=== PATIENT | male | born 1985 | race Caucasian/White ===

== ENCOUNTER 2017-03-20 23:27 | Inpatient (IN) | payer SELFPAY ==
[2017-03-20] MEDS ORDERED: Sodium Chloride 0.9% 10 ML Syringe FLUSH PRN (23:32)
[2017-03-20] MEDS: Sodium Chloride 0.9% 1,000 ML IV SCH (23:39)
[2017-03-21] LABS: ACETAMINOPHEN 0 ug/mL (10-30)
--- NOTE | 2017-03-21 00:59 | EDM.PDOC ---
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 He did not show and some coworkers went to his apartment to check on him. They found him laying on the floor like he passed out. When EMS arrived the found the same. He would localize to pain and moan. He would move all 4 extremities when he did that. There was nothing found on scene that he may have taken and there was no liquor bottles. Onset: Gradual Duration: Hour(s): Improves with: Reports: None Worsens with: Reports: None Associated Symptoms: Reports: No Other Symptoms - Related Data Allergies Allergy/AdvReac Type Severity Reaction Status Date / Time Unable to Assess Allergy Unverified 03/20/17 23:30 Home Meds: Home Meds . [Unable to Verify Home Med List] 03/20/17 [History] ED ROS GENERAL - Review of Systems Review Of Systems: Unable To Obtain ED EXAM, NEURO - Physical Exam Exam: See Below Exam Limited By: Altered Mental Status General Appearance: Lethargic Eye Exam: Bilateral Eye: EOMI, PERRL (he is looking to the right when I open his eyes) Ears: Normal External Exam Nose: Normal Inspection Head Exam: Atraumatic, Normocephalic Neck: Normal Inspection Respiratory/Chest: No Respiratory Distress, Lungs Clear, Normal Breath Sounds Cardiovascular: Regular Rate, Rhythm, No Edema, No Murmur GI/Abdominal: Soft, Non-Tender, No Organomegaly, No Mass Neurological: Other (He will not open his eyes to pain. He does localize to the pain and moan. He move all 4 extremities when stimulated with pain.) EKG INTERPRETATION EKG Date: 03/20/17 Time: 23:45 Rhythm: NSR Rate (Beats/Min): 80 [place]: Normal P-Wave: Present QRS: Normal ST-T: Other (Inverted T wave in lead III and aVF) Course - Vital Signs Last Recorded V/S: Last Vital Signs Temp 98.3 F 03/20/17 23:30 Pulse 83 03/20/17 23:30 Resp 22 H 03/20/17 23:30 BP 140/94 H 03/20/17 23:30 Pulse Ox 98 03/20/17 23:30 - Orders/Labs/Meds Orders: Active Orders 24 hr Category Date Time Status Cardiac Monitoring [RC] . DIRECTED Care 03/20/17 23:32 Active EKG Documentation Completion [RC] STAT Care 03/20/17 23:33 Active Peripheral IV Care [RC] . DIRECTED Care 03/20/17 23:33 Active Head wo Cont [CT] Stat Exams 03/20/17 23:33 Taken Sodium Chloride 0.9% [Normal Saline] 1,000 ml Med 03/20/17 23:45 Active IV ASDIRECTED Sodium Chloride 0.9% [Saline Flush] Med 03/20/17 23:32 Active 10 ml FLUSH ASDIRECTED PRN Peripheral IV Insertion Adult [OM.PC] Stat Oth 03/20/17 23:32 Ordered Medication Orders Sodium Chloride (Normal Saline) 1,000 mls @ 125 mls/hr IV ASDIRECTED RYAN Last Admin: 03/20/17 23:39 Dose: 125 mls/hr Sodium Chloride (Saline Flush) 10 ml FLUSH ASDIRECTED PRN PRN Reason: Keep Vein Open Last Admin: 03/20/17 23:39 Dose: 10 ml Labs: Laboratory Tests 03/20/17 03/20/17 03/20/17 Range/Units 23:20 23:29 23:29 WBC 11.30 H (4.23-9.07) K/mm3 RBC 5.13 (4.63-6.08) M/mm3 Hgb 15.4 (13.7-17.5) gm/L Hct 45.8 (40.1-51.0) % MCV 89.3 (79.0-92.2) fl MCH 30.0 (25.7-32.2) pg MCHC 33.6 (32.2-35.5) g/dl RDW Std Deviation 43.4 (35.1-43.9) fL Plt Count 232 (163-337) K/mm3 MPV 10.8 (9.4-12.3) fl Neut % (Auto) 63.6 (34.0-67.9) % Lymph % (Auto) 24.5 (21.8-53.1) % [place] % (Auto) 8.8 (5.3-12.2) % Eos % (Auto) 1.9 (0.8-7.0) Baso % (Auto) 0.7 (0.1-1.2) % Neut # (Auto) 7.17 H (1.78-5.38) K/mm3 Lymph # (Auto) 2.77 (1.32-3.57) K/mm3 [place] # (Auto) 1.00 H (0.30-0.82) K/mm3 Eos # (Auto) 0.22 (0.04-0.54) K/mm3 Baso # (Auto) 0.08 (0.01-0.08) K/mm3 Sodium 142 (136-145) mEq/L Potassium 3.8 (3.5-5.1) mEq/L Chloride 107 (98-107) mEq/L Carbon Dioxide 26 (21-32) mEq/L Anion Gap 12.8 (5-15) BUN 10 (7-18) mg/dL Creatinine 1.0 (0.7-1.3) mg/dL Est Cr Clr Drug Dosing TNP Estimated GFR (MDRD) > 60 (>60) mL/min BUN/Creatinine Ratio 10.0 L (14-18) Glucose 106 (74-106) mg/dL Calcium 8.7 (8.5-10.1) mg/dL Total Bilirubin 0.2 (0.2-1.0) mg/dL AST 22 (15-37) U/L ALT 53 (16-63) U/L Alkaline Phosphatase 69 (46-116) U/L Troponin I < 0.017 (0.00-0.056) ng/mL Total Protein 6.9 (6.4-8.2) g/dl Albumin 3.3 L (3.4-5.0) g/dl Globulin 3.6 gm/dL Albumin/Globulin Ratio 0.9 L (1-2) Salicylates (2.8-20) mg/dL Urine Opiates Screen Negative (NEGATIVE) Ur Buprenorphine Scrn Negative (NEGATIVE) Ur Oxycodone Screen Negative (NEGATIVE) Urine Methadone Screen Negative (NEGATIVE) Ur Propoxyphene Screen Negative (NEGATIVE) Acetaminophen 0 L (10-30) ug/mL Ur Barbiturates Screen Negative (NEGATIVE) Ur Tricyclics Screen Negative (NEGATIVE) Ur Phencyclidine Scrn Negative (NEGATIVE) Ur Amphetamine Screen Negative (NEGATIVE) U Methamphetamines Scrn Negative (NEGATIVE) U Benzodiazepines Scrn Negative (NEGATIVE) U Cocaine Metab Screen Negative (NEGATIVE) U Marijuana (THC) Screen Negative (NEGATIVE) Ethyl Alcohol 0.00 (0.00) gm% 03/20/17 Range/Units 23:29 WBC (4.23-9.07) K/mm3 RBC (4.63-6.08) M/mm3 Hgb (13.7-17.5) gm/L Hct (40.1-51.0) % MCV (79.0-92.2) fl MCH (25.7-32.2) pg MCHC (32.2-35.5) g/dl RDW Std Deviation (35.1-43.9) fL Plt Count (163-337) K/mm3 MPV (9.4-12.3) fl Neut % (Auto) (34.0-67.9) % Lymph % (Auto) (21.8-53.1) % [place] % (Auto) (5.3-12.2) % Eos % (Auto) (0.8-7.0) Baso % (Auto) (0.1-1.2) % Neut # (Auto) (1.78-5.38) K/mm3 Lymph # (Auto) (1.32-3.57) K/mm3 [place] # (Auto) (0.30-0.82) K/mm3 Eos # (Auto) (0.04-0.54) K/mm3 Baso # (Auto) (0.01-0.08) K/mm3 Sodium (136-145) mEq/L Potassium (3.5-5.1) mEq/L Chloride (98-107) mEq/L Carbon Dioxide (21-32) mEq/L Anion Gap (5-15) BUN (7-18) mg/dL Creatinine (0.7-1.3) mg/dL Est Cr Clr Drug Dosing Estimated GFR (MDRD) (>60) mL/min BUN/Creatinine Ratio (14-18) Glucose (74-106) mg/dL Calcium (8.5-10.1) mg/dL Total Bilirubin (0.2-1.0) mg/dL AST (15-37) U/L ALT (16-63) U/L Alkaline Phosphatase (46-116) U/L Troponin I (0.00-0.056) ng/mL Total Protein (6.4-8.2) g/dl Albumin (3.4-5.0) g/dl Globulin gm/dL Albumin/Globulin Ratio (1-2) Salicylates 2.6 L (2.8-20) mg/dL Urine Opiates Screen (NEGATIVE) Ur Buprenorphine Scrn (NEGATIVE) Ur Oxycodone Screen (NEGATIVE) Urine Methadone Screen (NEGATIVE) Ur Propoxyphene Screen (NEGATIVE) Acetaminophen (10-30) ug/mL Ur Barbiturates Screen (NEGATIVE) Ur Tricyclics Screen (NEGATIVE) Ur Phencyclidine Scrn (NEGATIVE) Ur Amphetamine Screen (NEGATIVE) U Methamphetamines Scrn (NEGATIVE) U Benzodiazepines Scrn (NEGATIVE) U Cocaine Metab Screen (NEGATIVE) U Marijuana (THC) Screen (NEGATIVE) Ethyl Alcohol (0.00) gm% Meds: Medications Generic Name Dose Route Start Last Admin Trade Name Freq PRN Reason Stop Dose Admin Sodium Chloride 1,000 mls @ 125 mls/hr 03/20/17 23:45 03/20/17 23:39 Normal Saline IV 125 mls/hr ASDIRECTED RYAN Administration Sodium Chloride 10 ml 03/20/17 23:32 03/20/17 23:39 Saline Flush FLUSH 10 ml ASDIRECTED PRN Administration Keep Vein Open - Re-Assessments/Exams Free Text/Narrative Re-Assessment/Exam: 03/21/17 01:00 I ordered an IV saline lock, CT of his head, EKG and labs. His EKG shows a NSR with no acute changes. His CT shows nothing acute. His WBC was slightly elevated at 11.3. His CMP was negative. His troponin was negative. His UDS was negative. His salicylate and acetaminophen were negative. He still will not wake up. His brother called and said he has no medical problems. He has been under lots of stress lately. When I asked him if he had any psych problems he said nothing diagnosed. I will need to admit him to the ICU. I called Dr Kincaid and he agreed to the admission. Departure - Departure Time of Disposition: 01:05 Disposition: Admitted As Inpatient 65 Condition: Serious Clinical Impression: Unresponsive, Altered level of consciousness - Discharge Information - My Orders Last 24 Hours: My Active Orders 03/20/17 23:32 Cardiac Monitoring [RC] . DIRECTED Sodium Chloride 0.9% [Saline Flush] 10 ml FLUSH ASDIRECTED PRN Peripheral IV Insertion Adult [OM.PC] Stat 03/20/17 23:33 EKG Documentation Completion [RC] STAT Peripheral IV Care [RC] . DIRECTED Head wo Cont [CT] Stat 03/20/17 23:45 Sodium Chloride 0.9% [Normal Saline] 1,000 ml IV ASDIRECTED - Assessment/Plan Last 24 Hours: My Active Orders 03/20/17 23:32 Cardiac Monitoring [RC] . DIRECTED Sodium Chloride 0.9% [Saline Flush] 10 ml FLUSH ASDIRECTED PRN Peripheral IV Insertion Adult [OM.PC] Stat 03/20/17 23:33 EKG Documentation Completion [RC] STAT Peripheral IV Care [RC] . DIRECTED Head wo Cont [CT] Stat 03/20/17 23:45 Sodium Chloride 0.9% [Normal Saline] 1,000 ml IV ASDIRECTED
[2017-03-21] MEDS ORDERED: Pantoprazole 40 MG Vial ONE (01:17)
[2017-03-21] MEDS ORDERED: Docusate Sodium 100 MG Cap PO PRN (01:17)
[2017-03-21] MEDS ORDERED: Bisacodyl 5 MG Tab PO PRN (01:17)
[2017-03-21] MEDS ORDERED: HYDROmorphone 0.5 MG/0.5 ML Syringe IVPUSH PRN (01:17)
[2017-03-21] MEDS ORDERED: Ondansetron 4 MG/2 ML SDV IV PRN (01:17)
[2017-03-21] MEDS ORDERED: Polyethylene Glycol 3350 Powder 17 GM Packet PO PRN (01:17)
[2017-03-21] MEDS ORDERED: Promethazine 12.5 MG in Sodium Chloride 0.9% 50 ML IV PRN (01:17)
[2017-03-21] MEDS ORDERED: Acetaminophen 325 MG Tab PO PRN (01:17)
[2017-03-21] MEDS ORDERED: Acetaminophen/HYDROcodone 325-5 MG Tab PO PRN (01:17)
[2017-03-21] MEDS ORDERED: Albuterol/Ipratropium 3.0-0.5 MG/3 ML Neb Soln NEB PRN (01:17)
--- NOTE | 2017-03-21 01:17 | PCM.HP ---
H&P History of Present Illness - General Date of Service: 03/21/17 Admit Problem/Dx: AMS Source of Information: Provider, RN Notes Reviewed History Limitations: Reports: Altered Mental Status - History of Present Illness Initial Comments - Free Text/Narative: This is a 28 yo white male with unknown past medical hx/o who was brought in for evaluation of unresponsiveness. His initial work up was fairly unremarkable. He is being admitted for medical management and for possible drug overdose. - Related Data Allergies/Adverse Reactions: Allergies Allergy/AdvReac Type Severity Reaction Status Date / Time No Known Allergies Allergy Verified 03/21/17 16:48 Home Medications: Home Meds . [Unable to Verify Home Med List] 03/20/17 [History] H&P Review of Systems - Review of Systems: Review Of Systems: Unable To Obtain Review of Systems Comment:: Patient is obtunded Exam - Exam Exam: See Below - Vital Signs Vital Signs: Last Vital Signs Temp 36.8 C 03/20/17 23:30 Pulse 83 03/20/17 23:30 Resp 22 H 03/20/17 23:30 BP 140/94 H 03/20/17 23:30 Pulse Ox 98 03/20/17 23:30 Weight: 113.398 kg - Exam General: Obtunded HEENT: PERRLA Neck: Supple, Trachea Midline Lungs: Normal Respiratory Effort, Decreased Breath Sounds Cardiovascular: Regular Rate, Regular Rhythm GI/Abdominal Exam: Normal Bowel Sounds, Soft, Non-Tender (Male) Exam: Deferred Rectal (Males) Exam: Deferred Back Exam: Normal Inspection, Decreased Range of Motion Extremities: Normal Inspection, Normal Range of Motion, Non-Tender, No Pedal Edema, Normal Capillary Refill Peripheral Pulses: 2+: Dorsalis Pedis (L), Dorsalis Pedis (R) Skin: Warm, Dry, Intact Physical Exam Comments:: Limited exam. He is obtunded - Patient Data Result Diagrams: 03/21/17 06:05 03/21/17 06:05 *Q Meaningful Use (ADM) - VTE *Q VTE Criteria *Q: - Stroke *Q Stroke Criteria *Q: - AMI *Q AMI Criteria *Q: Problem List Initiated/Reviewed/Updated: Yes Orders Last 24hrs: Medication Orders Sodium Chloride (Normal Saline) 1,000 mls @ 125 mls/hr IV ASDIRECTED RYAN Last Admin: 03/20/17 23:39 Dose: 125 mls/hr Sodium Chloride (Saline Flush) 10 ml FLUSH ASDIRECTED PRN PRN Reason: Keep Vein Open Last Admin: 03/20/17 23:39 Dose: 10 ml Assessment/Plan Comment:: Assessment/Plan: Acute: AMS - Unclear in etiology - Head CT scan shows no acute abnormal findings - UDS is negative - EKG shows no acute ST-T wave changes - No clear past medical hx/o - He maintains good airway - Supportive Care Possible Drug Overdose - No clear hx/o at this time Probable LUCAS - BMI is 40 - Will screen him with STOP- BANG once awake Plan: Admit to ICU Routine AM Labs Hold Home Meds if there are any RT consult Aspiration/Seizure Precautions Supportive care Code status: 1
[2017-03-21] MEDS ORDERED: chlordiazePOXIDE 25 MG Cap PO PRN (01:19)
[2017-03-21] MEDS ORDERED: cloNIDine 0.1 MG Tab PO PRN (01:19)
[2017-03-21] MEDS ORDERED: Metoprolol Tartrate 5 MG/5 ML SDV IVPUSH PRN (01:23)
[2017-03-21] MEDS ORDERED: hydrALAZINE 20 MG/ML SDV IVPUSH PRN (01:23)
[2017-03-21] MEDS ORDERED: LORazepam 2 MG/ML MDV IVPUSH PRN ×2 (01:23)
[2017-03-21] MEDS: Enoxaparin 40 MG/0.4 ML Syringe SUBCUT SCH (02:11)
[2017-03-21] MEDS: Sodium Chloride 0.9% 1,000 ML IV SCH ×4 (07:00→19:42)
--- NOTE | 2017-03-21 07:17 | PCM.PN ---
- General Info Date of Service: 03/21/17 Admission Dx/Problem (Free Text): AMS Subjective Update: Follow Up Functional Status: Reports: Pain Controlled, Urinating. Denies: New Symptoms - Review of Systems General: Denies: Fever Pulmonary: Denies: Shortness of Breath Psychiatric: Denies: Agitation Systems Review Comment:: ROS is limited. He is still obtunded - Patient Data Vitals - Most Recent: Last Vital Signs Temp 36.7 C 03/21/17 04:00 Pulse 78 03/21/17 04:00 Resp 20 03/21/17 04:00 BP 131/72 03/21/17 04:00 Pulse Ox 96 03/21/17 04:00 Weight - Most Recent: 133.674 kg I&O - Last 24 Hours: Intake & Output 03/20/17 03/21/17 03/21/17 22:59 06:59 14:59 Intake Total 376 Output Total 875 Balance -499 Lab Results Last 24 Hours: Laboratory Results - last 24 hr 03/21/17 03/21/17 03/21/17 Range/Units 02:15 06:05 06:05 WBC 11.08 H (4.23-9.07) K/mm3 RBC 4.81 (4.63-6.08) M/mm3 Hgb 14.1 (13.7-17.5) gm/L Hct 42.9 (40.1-51.0) % MCV 89.2 (79.0-92.2) fl MCH 29.3 (25.7-32.2) pg MCHC 32.9 (32.2-35.5) g/dl RDW Std Deviation 43.5 (35.1-43.9) fL Plt Count 235 (163-337) K/mm3 MPV 10.5 (9.4-12.3) fl Neut % (Auto) 61.7 (34.0-67.9) % Lymph % (Auto) 28.2 (21.8-53.1) % [place] % (Auto) 7.7 (5.3-12.2) % Eos % (Auto) 1.4 (0.8-7.0) Baso % (Auto) 0.5 (0.1-1.2) % Neut # (Auto) 6.84 H (1.78-5.38) K/mm3 Lymph # (Auto) 3.12 (1.32-3.57) K/mm3 [place] # (Auto) 0.85 H (0.30-0.82) K/mm3 Eos # (Auto) 0.16 (0.04-0.54) K/mm3 Baso # (Auto) 0.05 (0.01-0.08) K/mm3 Sodium 141 (136-145) mEq/L Potassium 3.9 (3.5-5.1) mEq/L Chloride 107 (98-107) mEq/L Carbon Dioxide 25 (21-32) mEq/L Anion Gap 12.9 (5-15) BUN 10 (7-18) mg/dL Creatinine 0.9 (0.7-1.3) mg/dL Est Cr Clr Drug Dosing 129.33 mL/min Estimated GFR (MDRD) > 60 (>60) mL/min BUN/Creatinine Ratio 11.1 L (14-18) Glucose 105 (74-106) mg/dL Calcium 8.5 (8.5-10.1) mg/dL Magnesium 1.6 L (1.8-2.4) mg/dl Ammonia 31 (11-32) umol/L Med Orders - Current: Current Medications Acetaminophen (Tylenol) 650 mg PO Q4H PRN PRN Reason: Pain (Mild 1-3)/fever Hydrocodone Bitart/Acetaminophen (Tillar 325-5 Mg) 1 tab PO Q4H PRN PRN Reason: Pain (moderate 4-6) Albuterol/Ipratropium (Duoneb 3.0-0.5 Mg/3 Ml) 3 ml NEB Q4H PRN PRN Reason: Shortness Of Breath/wheezing Bisacodyl (Dulcolax) 5 mg PO DAILY PRN PRN Reason: Constipation Chlordiazepoxide HCl (Librium) 25 mg PO Q8H PRN PRN Reason: Withdrawal Symptoms Clonidine HCl (Catapres) 0.1 mg PO Q4H PRN PRN Reason: Agitation Docusate Sodium (Colace) 100 mg PO BID PRN PRN Reason: Constipation Enoxaparin Sodium (Lovenox) 40 mg SUBCUT Q24H [facility] Last Admin: 03/21/17 02:11 Dose: 40 mg Famotidine (Pepcid) 20 mg PO Q12H [facility] Folic Acid (Folic Acid) 1 mg PO DAILY [facility] Stop: 03/23/17 09:01 Hydralazine HCl (Apresoline) 20 mg IVPUSH Q4H PRN PRN Reason: Hypertension Hydromorphone HCl (Dilaudid) 0.25 mg IVPUSH Q2H PRN PRN Reason: Pain (severe 7-10) Sodium Chloride (Normal Saline) 1,000 mls @ 125 mls/hr IV ASDIRECTED [facility] Last Admin: 03/21/17 07:00 Dose: 125 mls/hr Promethazine HCl 12.5 mg/ (Sodium Chloride) 50.5 mls @ 100 mls/hr IV Q6H PRN PRN Reason: Nausea/Vomiting Lorazepam (Ativan) 2 mg IVPUSH Q4H PRN PRN Reason: Seizures Lorazepam (Ativan) 0 mg IVPUSH Q4H PRN; Protocol PRN Reason: Withdrawal Symptoms Metoprolol Tartrate (Lopressor) 5 mg IVPUSH Q4H PRN PRN Reason: Tachycardia Multivitamins (Thera) 1 each PO DAILY [facility] Nicotine (Habitrol) 21 mg TRDERM DAILY [facility] Ondansetron HCl (Zofran) 4 mg IV Q6H PRN PRN Reason: Nausea/Vomiting Polyethylene Glycol (Miralax) 17 gm PO DAILY PRN PRN Reason: Constipation Potassium Chloride (Pharmacy To Dose - Potassium Replacement) 1 dose .XX ASDIRECTED [facility] Senna/Docusate Sodium (Senna Plus) 1 tab PO BID PRN PRN Reason: Constipation Sodium Chloride (Saline Flush) 10 ml FLUSH ASDIRECTED PRN PRN Reason: Keep Vein Open Last Admin: 03/20/17 23:39 Dose: 10 ml Thiamine HCl (Vitamin B-1) 100 mg PO DAILY [facility] Discontinued Medications Pantoprazole Sodium (Protonix Iv) 40 mg .XX ONETIME ONE Stop: 03/21/17 01:18 Last Admin: 03/21/17 02:11 Dose: 40 mg - Exam General: Obtunded, Other (indwelling [place] catheter) HEENT: Other (pupils pointing downward) Lungs: Clear to Auscultation, Normal Respiratory Effort Cardiovascular: Regular Rate, Regular Rhythm GI/Abdominal Exam: Normal Bowel Sounds, Soft, Non-Tender, No Organomegaly, No Distention, No Abnormal Bruit, No Mass, Other (Obese with noted abdominal striae ) (Male) Exam: Other (indwelling [place] catheter) Back Exam: Normal Inspection Extremities: Normal Inspection, No Pedal Edema, Normal Capillary Refill Peripheral Pulses: 3+: Posterior Tibial (L), Posterior Tibial (R), Dorsalis Pedis (L), Dorsalis Pedis (R) Skin: Warm, Dry, Intact Neurological: Sensation Intact Physical Findings Comments:: He remains obtunded. He does not respond to verbal calls but to touch and stimulation. He is especially sensitive when you touch him at the sternum/chest area. He will move but would not open his eyes. - Problem List Review Problem List Initiated/Reviewed/Updated: Yes - My Orders Last 24 Hours: My Active Orders 03/21/17 01:17 CIWAA Assessment [RC] Q1HR Height and Weight [RC] 04 Notify Provider [RC] PRN Oxygen Therapy [RC] PRN Up With Assistance [RC] ASDIRECTED Up ad Molly [RC] ASDIRECTED VTE/DVT Education [RC] , Vital Signs [RC] Q4HR Acetaminophen [Tylenol] 650 mg PO Q4H PRN Acetaminophen/HYDROcodone [Tillar 325-5 MG] 1 tab PO Q4H PRN Albuterol/Ipratropium [DuoNeb 3.0-0.5 MG/3 ML] 3 ml NEB Q4H PRN Bisacodyl [Dulcolax] 5 mg PO DAILY PRN Docusate Sodium [Colace] 100 mg PO BID PRN Docusate Sodium/Sennosides [Senna Plus] 1 tab PO BID PRN HYDROmorphone [Dilaudid] 0.25 mg IVPUSH Q2H PRN Ondansetron [Zofran] 4 mg IV Q6H PRN Polyethylene Glycol 3350 [MiraLAX] 17 gm PO DAILY PRN Promethazine [Phenergan] 12.5 mg Sodium Chloride 0.9% [Normal Saline] 50 ml IV Q6H Resuscitation Status Routine 03/21/17 01:18 Cardiac Monitoring [RC] CONTINUOUS Intake and Output [RC] Q2HR 03/21/17 01:19 RT Aerosol Therapy [RC] ASDIRECTED Consult to Spiritual Care [CONS] Routine Respiratory Care Assess and Treatment [CONS] Routine chlordiazePOXIDE [Librium] 25 mg PO Q8H PRN cloNIDine [Catapres] 0.1 mg PO Q4H PRN 03/21/17 01:23 LORazepam [Ativan] 2 mg IVPUSH Q4H PRN LORazepam [Ativan] See Protocol IVPUSH Q4H PRN Metoprolol Tartrate [Lopressor] 5 mg IVPUSH Q4H PRN hydrALAZINE [Apresoline] 20 mg IVPUSH Q4H PRN 03/21/17 01:27 Urinary Catheter Assessment [RC] Q4HR 03/21/17 01:30 [place] Catheter Insertion [Insert Urinary Catheter] [OM.PC] Q24H Potassium Rep Pharmacy to Dose [Pharmacy to Dose - Potassium Replacement] 1 dose .XX ASDIRECTED 03/21/17 02:00 Enoxaparin [Lovenox] 40 mg SUBCUT Q24H 03/21/17 09:00 Famotidine [Pepcid] 20 mg PO Q12H Folic Acid 1 mg PO DAILY Multivitamins,Therapeutic [Thera] 1 each PO DAILY Nicotine [Habitrol] 21 mg TRDERM DAILY Thiamine [Vitamin B-1] 100 mg PO DAILY 03/21/17 Breakfast Nothing per Oral Now Diet [DIET] 03/22/17 05:11 BASIC METABOLIC PANEL,BMP [CHEM] AM MAGNESIUM [CHEM] AM 03/23/17 05:11 BASIC METABOLIC PANEL,BMP [CHEM] AM MAGNESIUM [CHEM] AM - Plan Plan:: Assessment/Plan: Acute: AMS/Encephalopathy - Unclear in etiology: ? "Deep Sleep Episode/Syndrome" - Head CT scan shows no acute abnormal findings - UDS is negative - EKG shows no acute ST-T wave changes - No clear past medical hx/o - He maintains good airway - Supportive Care - Will clamp [place] catheter and increased fluid rate to 250cc/hr; hopefully this will put pressure on his bladder and wake him up for the urge Possible Drug Overdose - No clear hx/o at this time Hypomagnesemia - Likely 2/2 no oral intake - Mg 1.6 - Replete and monitor Probable LUCAS - BMI is 40 - Will screen him with STOP- BANG once awake Plan: He is clinically stable Transfer to [facility] Routine AM Labs Continue RT to assess respiratory status Aspiration/Seizure Precautions Supportive care Code status: 1 Day nurse spoke to patient's mom who is located in [place]. Mom reports son has had "deep sleep episode" at least 3 times in the past. When it happens, he usually in deep sleep for a couple of days. According to her, his first episode was 15 years ago. No diagnosis of organic brain disease or reports of underlying psychiatric illness. 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
[2017-03-21] MEDS ORDERED: Magnesium Sulfate/Water 2 GM in Premix Bag 1 BAG IV ONE (08:43)
[2017-03-21] MEDS: Nicotine 21 MG/24 Hr Patch TRDERM SCH (09:03)
[2017-03-21] MEDS: Folic Acid 1 MG Tab PO SCH (09:05)
[2017-03-21] MEDS: Thiamine 100 MG Tab PO SCH (09:05)
[2017-03-21] MEDS: Famotidine 20 MG Tab PO SCH ×3 (09:05→22:46)
[2017-03-21] MEDS: Multivitamins,Therapeutic Tab PO SCH (09:05)
[2017-03-21] MEDS ORDERED: Acetaminophen/Butalbital/Caffeine 325-50-40 MG Tab PO PRN (22:29)
[2017-03-22] MEDS: Enoxaparin 40 MG/0.4 ML Syringe SUBCUT SCH (03:47)
--- NOTE | 2017-03-22 07:11 | PCM.DCSUM1 ---
Discharge Summary - Hospital Course Brief History: This is a 28 yo white male with unknown past medical hx/o who was brought in for evaluation of unresponsiveness. His initial work up was fairly unremarkable. He was admitted for medical management and for possible drug overdose. - Discharge Data Discharge Date: 03/22/17 Discharge Disposition: Home, Self-Care 01 Condition: Good - Discharge Diagnosis/Problem(s) (1) Altered level of consciousness SNOMED Code(s): 2325787 ICD Code: R40.4 - TRANSIENT ALTERATION OF AWARENESS Status: Resolved (2) Sleep disorder SNOMED Code(s): 11279015 ICD Code: G47.9 - SLEEP DISORDER, UNSPECIFIED Status: Chronic (3) Morbid obesity with BMI of 40.0-44.9, adult SNOMED Code(s): 144178364 ICD Code: E66.01 - MORBID (SEVERE) OBESITY DUE TO EXCESS CALORIES; Z68.41 - BODY MASS INDEX (BMI) 40.0-44.9, ADULT Status: Chronic - Patient Summary/Data Operative Procedure(s) Performed: None Complications: None Consults: Consultations 03/21/17 01:19 Consult to Spiritual Care [CONS] Routine Respiratory Care Assess and Treatment [CONS] Routine Labs Pending at D/C: None Recommended Follow-up Testing/Procedures: None Planned Operative Procedure(s) after DC: None Hospital Course: Patient was primarily admitted for altered mental status. All basic work up to included labs, drug screen and head CT scan were unremarkable. Patient has had this episode on 3 separate occasions according to his mom. She described his condition as "deep sleep episode" and has never been formally evaluated according to her. Upon admission, he was moved immediately to the unit for closer observation. In the unit, he was provided nothing but supportive care. The patient slowly came around and finally after he was down-graded to the floor, he perked up suddenly and remained alert and awake for the rest of the night. His hospital course was uncomplicated. He was offered for sleep study but according to him, he had it done before with benign results. Patient was stable upon discharge. He was advised to see a sleep specialist or neurologist and follow up with PCP in 1 week. He was further advised to come back or seek immediate care should his symptom persists or gets worse. The patient expressed understanding and in agreement with plans as discussed above. All questions were answered. - Patient Instructions Diet: Usual Diet as Tolerated, Weight Loss Diet Activity: As Tolerated Driving: May Drive Today Showering/Bathing: May Shower Notify Provider of: Fever, Increased Pain, Nausea and/or Vomiting Other/Special Instructions: - Please take all medications as directed. - Recommend Lifestyle modifications: Exercise regularly, Lose weight and Eat properly. - Recommend you see a neurologist or sleep specialist in [place], [place]. - Follow up with your PCP in 1 week. - Call your family doctor (PCP) for any questions or concerns after discharge - Discharge Plan Prescriptions/Med Rec: Acetaminophen/Butalbital/Caff [Fioricet 325-50-40 MG] 2 tab PO Q6H PRN #20 tablet PRN Reason: Headache Home Medications: Home Meds . [No Known Home Meds] 11/11/16 [History] Acetaminophen/Butalbital/Caff [Fioricet 325-50-40 MG] 2 tab PO Q6H PRN #20 tablet 03/22/17 [Rx] Ibuprofen [Motrin] 400 mg PO Q4H PRN 03/22/17 [History] Referrals: Joby Lew [Physician] - (Please call [phone] to schedule an appointment to begin seeing a local primary care doctor, Dr. Joby Lew, within 1 week. At this appointment discuss your current hospitalization and need for a neurologist referral. ) - Discharge Summary/Plan Comment DC Time >30 min.: Yes (45 mins) Discharge Summary/Plan Comment: Discharge to Home - General Info Date of Service: 03/22/17 Admission Dx/Problem (Free Text: AMS Subjective Update: Follow Up Functional Status: Reports: Pain Controlled, Tolerating Diet, Ambulating, Urinating - Review of Systems General: Denies: Fever, Weakness, Fatigue, Malaise, Chills HEENT: Reports: No Symptoms Pulmonary: Denies: Shortness of Breath Cardiovascular: Denies: Chest Pain, Palpitations, Dyspnea on Exertion, Lightheadedness Gastrointestinal: Denies: Abdominal Pain, Difficulty Swallowing, Nausea Genitourinary: Reports: No Symptoms Musculoskeletal: Reports: No Symptoms Skin: Denies: Cyanosis, Pallor, Diaphoresis, Rash Neurological: Denies: Confusion, Dizziness, Headache, Seizure, Difficulty Walking, Weakness, Gait Disturbance Psychiatric: Denies: Depression, Mood Lability, Anxiety, Agitation, Cravings, Hallucinations, Suicidal Ideation Systems Review Comment: No overnight or acute issues. He was doing relatively quell. He reported no new complaints. - Patient Data Vitals - Most Recent: Last Vital Signs Temp 36.5 C 03/22/17 03:37 Pulse 73 03/22/17 03:37 Resp 20 03/22/17 03:37 BP 127/65 03/22/17 03:37 Pulse Ox 95 03/22/17 03:37 Weight - Most Recent: 134.989 kg I&O - Last 24 hours: Intake & Output 03/21/17 03/22/17 03/22/17 22:59 06:59 14:59 Intake Total 1000 1500 Output Total 1650 600 Balance -650 900 Lab Results - Last 24 hrs: Laboratory Results - last 24 hr 03/22/17 Range/Units 05:53 Sodium 142 (136-145) mEq/L Potassium 4.0 (3.5-5.1) mEq/L Chloride 108 H (98-107) mEq/L Carbon Dioxide 24 (21-32) mEq/L Anion Gap 14.0 (5-15) BUN 10 (7-18) mg/dL Creatinine 0.9 (0.7-1.3) mg/dL Est Cr Clr Drug Dosing 129.33 mL/min Estimated GFR (MDRD) > 60 (>60) mL/min BUN/Creatinine Ratio 11.1 L (14-18) Glucose 87 (74-106) mg/dL Calcium 8.2 L (8.5-10.1) mg/dL Magnesium 1.8 (1.8-2.4) mg/dl Med Orders - Current: Current Medications Acetaminophen (Tylenol) 650 mg PO Q4H PRN PRN Reason: Pain (Mild 1-3)/fever Acetaminophen/Butalbital/Caffeine (Fioricet 325-50-40 Mg) 2 tab PO Q6H PRN PRN Reason: Headache Last Admin: 03/21/17 22:44 Dose: 2 tab Hydrocodone Bitart/Acetaminophen ([place] 325-5 Mg) 1 tab PO Q4H PRN PRN Reason: Pain (moderate 4-6) Last Admin: 03/21/17 22:46 Dose: 1 tab Albuterol/Ipratropium (Duoneb 3.0-0.5 Mg/3 Ml) 3 ml NEB Q4H PRN PRN Reason: Shortness Of Breath/wheezing Bisacodyl (Dulcolax) 5 mg PO DAILY PRN PRN Reason: Constipation Chlordiazepoxide HCl (Librium) 25 mg PO Q8H PRN PRN Reason: Withdrawal Symptoms Clonidine HCl (Catapres) 0.1 mg PO Q4H PRN PRN Reason: Agitation Docusate Sodium (Colace) 100 mg PO BID PRN PRN Reason: Constipation Enoxaparin Sodium (Lovenox) 40 mg SUBCUT Q24H [facility] Last Admin: 03/22/17 03:47 Dose: 40 mg Famotidine (Pepcid) 20 mg PO Q12H [facility] Last Admin: 03/21/17 22:46 Dose: 20 mg Folic Acid (Folic Acid) 1 mg PO DAILY [facility] Stop: 03/23/17 09:01 Last Admin: 03/21/17 09:05 Dose: Not Given Hydralazine HCl (Apresoline) 20 mg IVPUSH Q4H PRN PRN Reason: Hypertension Hydromorphone HCl (Dilaudid) 0.25 mg IVPUSH Q2H PRN PRN Reason: Pain (severe 7-10) Promethazine HCl 12.5 mg/ (Sodium Chloride) 50.5 mls @ 100 mls/hr IV Q6H PRN PRN Reason: Nausea/Vomiting Lorazepam (Ativan) 2 mg IVPUSH Q4H PRN PRN Reason: Seizures Lorazepam (Ativan) 0 mg IVPUSH Q4H PRN; Protocol PRN Reason: Withdrawal Symptoms Magnesium Sulfate (Pharmacy To Dose - Magnesium Replacement) 0 dose .XX ASDIRECTED PRN PRN Reason: RX TO WATCH MAG LEVELS Metoprolol Tartrate (Lopressor) 5 mg IVPUSH Q4H PRN PRN Reason: Tachycardia Multivitamins (Thera) 1 each PO DAILY [facility] Last Admin: 03/21/17 09:05 Dose: Not Given Nicotine (Habitrol) 21 mg TRDERM DAILY [facility] Last Admin: 03/21/17 09:03 Dose: 21 mg Ondansetron HCl (Zofran) 4 mg IV Q6H PRN PRN Reason: Nausea/Vomiting Polyethylene Glycol (Miralax) 17 gm PO DAILY PRN PRN Reason: Constipation Potassium Chloride (Pharmacy To Dose - Potassium Replacement) 0 dose .XX ASDIRECTED PRN PRN Reason: RX TO WATCH K LEVELS Senna/Docusate Sodium (Senna Plus) 1 tab PO BID PRN PRN Reason: Constipation Sodium Chloride (Saline Flush) 10 ml FLUSH ASDIRECTED PRN PRN Reason: Keep Vein Open Last Admin: 03/20/17 23:39 Dose: 10 ml Thiamine HCl (Vitamin B-1) 100 mg PO DAILY [facility] Last Admin: 03/21/17 09:05 Dose: Not Given Discontinued Medications Sodium Chloride (Normal Saline) 1,000 mls @ 125 mls/hr IV ASDIRECTED [facility] Last Infusion: 03/21/17 07:39 Dose: 250 mls/hr Magnesium Sulfate 2 gm/ Premix 50 mls @ 25 mls/hr IV ONETIME ONE Stop: 03/21/17 10:42 Last Admin: 03/21/17 09:00 Dose: 25 mls/hr Sodium Chloride (Normal Saline) 1,000 mls @ 250 mls/hr IV ASDIRECTED [facility] Last Admin: 03/21/17 19:42 Dose: 250 mls/hr Pantoprazole Sodium (Protonix Iv) 40 mg .XX ONETIME ONE Stop: 03/21/17 01:18 Last Admin: 03/21/17 02:11 Dose: 40 mg - Exam General: Reports: Alert, Oriented, Cooperative, No Acute Distress, Other ( Morbidly Obese) HEENT: Reports: Pupils Equal, Pupils Reactive, EOMI, Mucous Membr. Moist/[place] Neck: Reports: Supple, Trachea Midline, No JVD, No Thyromegaly Lungs: Reports: Clear to Auscultation, Normal Respiratory Effort Cardiovascular: Reports: Regular Rate, Regular Rhythm GI/Abdominal Exam: Normal Bowel Sounds, Soft, Non-Tender, No Organomegaly, No Distention, No Abnormal Bruit, No Mass (Male) Exam: Deferred Rectal (Males) Exam: Deferred Back Exam: Reports: Normal Inspection, Decreased Range of Motion Extremities: Normal Inspection, Normal Range of Motion, Non-Tender, No Pedal Edema, Normal Capillary Refill Skin: Reports: Warm, Dry, Intact Neurological: Reports: No New Focal Deficit Psy/Mental Status: Reports: Alert, Normal Affect, Normal Mood *Q Meaningful Use (DIS) - VTE *Q VTE Criteria *Q: - Stroke *Q Stroke Criteria *Q: - AMI *Q AMI Criteria *Q:
[2017-03-22 07:50] VITALS: BP 132/66
--- NOTE | 2017-03-22 07:59 | CT ---
Head CT Technique: Multiple axial sections through the brain were obtained. Intravenous contrast was not utilized. Comparison: No prior intracranial imaging. Findings: Ventricles along with basal cisterns and sulci over convexities are within normal limits for the patient's age. No abnormal parenchymal densities are seen. No evidence of intracranial hemorrhage. No midline shift or mass effect is seen. Bone window settings were reviewed which show minimal mucosal thickening or broad-based small retention cyst within the left maxillary sinus which is incidental. Other visualized sinuses are clear. No acute calvarial abnormality is seen. Impression: 1. Incidental left maxillary sinus finding. 2. Nothing acute is identified on noncontrast head CT exam. Diagnostic code #2 I agree with preliminary report issued by [facility] ([facility] report finalized on 03/21/17, 1:05 AM Central Time)
[2017-03-22] MEDS: Famotidine 20 MG Tab PO SCH (08:05)
[2017-03-22] MEDS: Folic Acid 1 MG Tab PO SCH (08:05)
[2017-03-22] MEDS: Multivitamins,Therapeutic Tab PO SCH (08:06)
[2017-03-22] MEDS: Nicotine 21 MG/24 Hr Patch TRDERM SCH (08:06)
[2017-03-22] MEDS: Thiamine 100 MG Tab PO SCH (08:06)
[2017-03-22] MEDS ORDERED: Magnesium Oxide 400 MG Tab PO ONE (09:15)
== END 2017-03-22 09:34 | disposition home or self-care (01) | DRG 947 ==
LOC: JD.ED 23:27 → EDBD 03-21 01:11 → MERGE 03-21 01:11 → JD.OB 03-21 01:11 → JD.ICU 03-21 01:57 → JD.MS 03-21 20:32
PROVIDERS: ADMIT Internal Medicine; ATTEND Internal Medicine
DX: R41.82 Altered mental status, unspecified (principal); G93.40 Encephalopathy, unspecified; Z68.41 Body mass index [BMI] 40.0-44.9, adult; E66.01 Morbid (severe) obesity due to excess calories; E83.42 Hypomagnesemia; G47.33 Obstructive sleep apnea (adult) (pediatric)
CPT/HCPCS: 36415; 70450; 70450-26; 80048; 80053; 80306; 82140; 83735; 84484; 85025; 93005; 93010; 94762; 96360; 96361; 99223; 99239; 99283; 99285-25; A9270; A9270-GY; C9113; G0480; J1650; J3475; J7040; J7050; P9612